=== PATIENT | female | born 1970 | race Asian ===

== ENCOUNTER → 2016-05-12 | Outpatient (CLI) | payer OTHER ==
--- NOTE | 2016-05-12 10:25 | DX ---
Left ankle series 3 views 0902 hours. History: Evaluate healing. Recent surgery on April 05, 2016. Findings: Comparison to September 22, 2012. Small caliber screw is seen from anterior approach into the distal tibial plafond. There appears to b e subchondral cyst or erosion in this region. There may be a bone plug associated with the screw. It is difficult to evaluate for potential healing with overlapping structures. There is some spurring ar ound the ankle joint. Mild diffuse narrowing of the ankle mortise is suspected. Dense calcifications have increased posterior to the ankle joint probably associated with the Achilles tendon. There is kaufman btle erosion suspected at the Achilles tendon insertion along the posterior calcaneus next could be r elated to enthesopathy. Impression: 1. Previous surgery anterior tibial plafond and with possible associated subchondral cyst or erosion. Is difficult to confirm degree of healing secondary to overlapping structures. 2. Mild diffuse narrowing at the ankle joint. Marginal spurs are suspected. 3. 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
== END ==
LOC: BMCIMAGING 09:01
PROVIDERS: ATTEND Podiatrist Foot & Ankle Surgery
DX: Z47.89 Encounter for other orthopedic aftercare (principal); M25.872 Other specified joint disorders, left ankle and foot

== ENCOUNTER → 2016-06-02 | Outpatient (CLI) | payer OTHER ==
--- NOTE | 2016-06-02 15:23 | DX ---
Left ankle series 3 views 1326 hours. History: Ankle surgery on April 15, 2016. Evaluate for healing. Findings: Comparison to May 12, 2016. Small caliber screw is once again seen in the region of the distal tibial plafond with associated bon e plug. The margins are less well delineated compatible with some healing. The ankle mortise otherwis e has a normal contour. Subchondral cyst is once again noted anterior aspect of the distal tibia in t he region of the recent surgery. Soft tissues are unremarkable except for heterotopic calcification p osteriorly stable in appearance. Impression: 1. Subtle early healing suspected associated with the bone plug distal anterior tibial plafond with a ssociated screw in place as detailed above. 2. Heterotopic calcifications once again noted posteriorly in the soft tissues possibly associated wi th the Achilles tendon.
== END ==
LOC: BMCIMAGING 13:25
PROVIDERS: ATTEND Podiatrist Foot & Ankle Surgery
DX: Z47.89 Encounter for other orthopedic aftercare (principal)

== ENCOUNTER → 2017-09-07 | Outpatient (CLI) | payer OTHER ==
[~2017-09-07] MED LIST: LIDOCAINE 1% 300 MG/30 ML SDV ONE
== END ==
LOC: FIMAGING 08:27
PROVIDERS: ATTEND Psychiatry & Neurology Neurology
PROC: 009U3ZX Drainage of Spinal Canal, Percutaneous Approach, Diagnostic (ICD-10-PCS; principal; 2017-09-07)
DX: R42 Dizziness and giddiness (principal); R51 Headache